=== PATIENT | male | born 1965 | race African-American/Black ===

== ENCOUNTER 2016-10-06 05:13 | Emergency (ER) | payer OTHER ==
[2016-10-06] MEDS ORDERED: Ketorolac Tromethamine 60 MG/2 ML VIAL ONE (05:39)
== END 2016-10-06 06:00 | disposition home or self-care (01) ==
LOC: NAV ERS 05:13
DX: M10.9 Gout, unspecified (principal); I10 Essential (primary) hypertension; E78.5 Hyperlipidemia, unspecified; Z79.899 Other long term (current) drug therapy; Z79.82 Long term (current) use of aspirin
CPT/HCPCS: 96372; J1885

== ENCOUNTER 2017-02-27 17:28 | Emergency (ER) | payer OTHER ==
[2017-02-27] MEDS ORDERED: Ketorolac Tromethamine 60 MG/2 ML VIAL ONE (17:57)
== END 2017-02-27 18:23 | disposition home or self-care (01) ==
LOC: NAV ERS 17:28
DX: M10.9 Gout, unspecified (principal); E78.5 Hyperlipidemia, unspecified; I10 Essential (primary) hypertension; F17.220 Nicotine dependence, chewing tobacco, uncomplicated; Z79.82 Long term (current) use of aspirin; Z79.899 Other long term (current) drug therapy
CPT/HCPCS: 96372; J1885

== ENCOUNTER 2017-03-02 08:41 | Outpatient (CLI) | payer OTHER ==
--- NOTE | 2017-03-02 10:29 | RAD ---
LEFT ELBOW FOUR VIEWS: History: 51-year-old male with history of gout. FINDINGS: There is evidence for elbow joint effusion with prominently visible posterior fat pad. Prominent enth esophytic changes are noted involving the triceps, olecranon insertion, as well as at the region of t he common flexion tendon insertion. Mild degenerative changes of the trochlear ulna joint. No acute f racture or dislocation. IMPRESSION: Evidence for an elbow joint effusion. Prominent enthesophytic changes. No acute fracture or dislocati on. POS: [facility]
--- NOTE | 2017-03-02 10:30 | RAD ---
LEFT KNEE FOUR VIEWS: History: 51-year-old male with history of pain. Left knee pain with history of diagnosis of gout. FINDINGS: Four views of the left knee demonstrate mild degenerative changes. No acute fracture or dislocation. No evidence for abnormal joint effusion. Quadriceps enthesophytic changes. IMPRESSION: Degenerative changes. No fracture or dislocation. POS: [facility]
== END 2017-03-02 08:42 | disposition home or self-care (01) ==
LOC: NAV RAD 08:41
DX: M10.9 Gout, unspecified (principal); M17.12 Unilateral primary osteoarthritis, left knee; M25.461 Effusion, right knee; M76.9 Unspecified enthesopathy, lower limb, excluding foot

== ENCOUNTER 2017-05-02 10:48 | Emergency (ER) | payer OTHER | END 2017-05-02 11:35 | disposition home or self-care (01) | LOC: NAV ERS 10:48 | DX: M10.9 Gout, unspecified (principal); E78.5 Hyperlipidemia, unspecified; I10 Essential (primary) hypertension; F17.220 Nicotine dependence, chewing tobacco, uncomplicated; F17.290 Nicotine dependence, other tobacco product, uncomplicated; Z79.82 Long term (current) use of aspirin; Z79.899 Other long term (current) drug therapy | CPT/HCPCS: 99283 ==

== ENCOUNTER 2017-11-21 06:32 | Emergency (ER) | payer OTHER ==
[2017-11-21] MEDS ORDERED: Ketorolac Tromethamine 60 MG/2 ML VIAL ONE (07:10)
== END 2017-11-21 07:36 | disposition home or self-care (01) ==
LOC: NAV ERS 06:32
DX: M10.9 Gout, unspecified (principal); E78.5 Hyperlipidemia, unspecified; F17.220 Nicotine dependence, chewing tobacco, uncomplicated; Z79.82 Long term (current) use of aspirin; Z79.899 Other long term (current) drug therapy
CPT/HCPCS: 96372; J1885

== ENCOUNTER 2018-01-26 05:09 | Emergency (ER) | payer OTHER ==
[2018-01-26] MEDS ORDERED: Indomethacin 25 mg Capsule ONE (05:31)
[2018-01-26] MEDS ORDERED: Colchicine 0.6 MG TAB ONE (05:32)
== END 2018-01-26 05:41 | disposition home or self-care (01) ==
LOC: NAV ERS 05:09
DX: M10.9 Gout, unspecified (principal); E78.5 Hyperlipidemia, unspecified; I10 Essential (primary) hypertension; F17.220 Nicotine dependence, chewing tobacco, uncomplicated; Z79.82 Long term (current) use of aspirin; Z79.899 Other long term (current) drug therapy
CPT/HCPCS: 99283

== ENCOUNTER 2018-09-18 08:17 | Emergency (ER) | payer OTHER | END 2018-09-18 08:48 | disposition home or self-care (01) | LOC: NAV ERS 08:17 | DX: H10.33 Unspecified acute conjunctivitis, bilateral (principal); I10 Essential (primary) hypertension; M10.9 Gout, unspecified; E78.5 Hyperlipidemia, unspecified; F17.220 Nicotine dependence, chewing tobacco, uncomplicated; Z79.82 Long term (current) use of aspirin; Z79.899 Other long term (current) drug therapy | CPT/HCPCS: 99282 ==

== ENCOUNTER 2019-01-19 07:29 | Emergency (ER) | payer OTHER ==
[2019-01-19] MEDS ORDERED: Sodium Chloride 0.9% 1,000 ML ONE (07:41)
[2019-01-19] MEDS ORDERED: Nitrazine Tape 1 ROLL ONE (07:46)
== END 2019-01-19 08:18 | disposition home or self-care (01) ==
LOC: NAV ERS 07:29
DX: Z77.098 Contact with and (suspected) exposure to other hazardous, chiefly nonmedicinal, chemicals (principal); I10 Essential (primary) hypertension; E78.5 Hyperlipidemia, unspecified; E78.00 Pure hypercholesterolemia, unspecified; M10.9 Gout, unspecified; F17.220 Nicotine dependence, chewing tobacco, uncomplicated; Z79.82 Long term (current) use of aspirin; Z79.899 Other long term (current) drug therapy
CPT/HCPCS: 99283; J7050

== ENCOUNTER 2019-06-23 17:38 | Emergency (ER) | payer OTHER ==
[2019-06-23 18:34] LABS: #Basophils 0.1 thou/uL (0.0-0.2); #Eosinphils 0.3 thou/uL (0.0-0.7); #Lymphocytes 2.1 thou/uL (1.20-3.40); #Monocytes 0.5 thou/uL (0.11-0.59); #Neutrophils 3.1 thou/uL (1.40-6.50); %Basophils 1.4 % (0.0-1.0); %Eosinophils 4.4 % (0.0-10.0); %Lymphocytes 34.7 % (21.0-51.0); %Monocytes 7.8 % (0.0-10.0); %Neutrophils 51.7 % (42.0-75.0); Hemoglobin 15.4 g/dL (14.0-18.0); Mean Corpuscular HGB CONC 30.8 g/dL (32.0-36.0); Mean Corpuscular Hemoglobin 26.3 pg (27.0-31.0); Mean Corpuscular Volume 85.4 fL (78.0-98.0); Mean Platelet Volume 7.5 fL (7.4-10.4); Platelet Count 230 thou/uL (130-400); RBC Distribution Width 13.9 % (11.5-14.5); Red Blood Cell (RBC) Count 5.87 mill/uL (4.70-6.10)
--- NOTE | 2019-06-23 18:48 | RAD ---
EXAM: Two views chest PROVIDED CLINICAL HISTORY: Pain COMPARISON: None FINDINGS: Cardiac and mediastinal silhouette appears within normal limits. Lungs appear free of significant opa city. No pleural fluid or pneumothorax apparent. Calcified hilar lymph node on the right. IMPRESSION: No evidence for an acute cardiopulmonary process.
[2019-06-23] MEDS ORDERED: Aspirin Chewable 81 MG TAB ONE (18:53)
[2019-06-23 18:57] LABS: ALT (SGPT) 28 U/L (8-55); AST (SGOT) 21 U/L (5-34); Alkaline Phosphatase 53 U/L (40-110); Anion Gap 18 mmol/L (10-20); BUN (Urea Nitrogen) 19 mg/dL (8.4-25.7); Bilirubin, Total 0.3 mg/dL (0.2-1.2); Calc. Creatinine Clearance 0 mL/min (70-130); Calcium 8.9 mg/dL (7.8-10.44); Carbon Dioxide 23 mmol/L (22-29); Chloride 99 mmol/L (98-107); Estimated GFR-MDRD 75; Globulin 3.4 g/dL (2.4-3.5); Glucose 110 mg/dL (70-105); Potassium 3.2 mmol/L (3.5-5.1); Protein, Total 7.4 g/dL (6.0-8.3); Sodium 137 mmol/L (136-145)
[2019-06-23] MEDS ORDERED: Potassium Chloride 20 MEQ TAB ONE (19:18)
== END 2019-06-23 19:25 | disposition home or self-care (01) ==
LOC: NAV ERS 17:38
DX: R07.9 Chest pain, unspecified (principal); E87.6 Hypokalemia; E78.5 Hyperlipidemia, unspecified; E78.00 Pure hypercholesterolemia, unspecified; I10 Essential (primary) hypertension; M10.9 Gout, unspecified; K21.9 Gastro-esophageal reflux disease without esophagitis; F17.220 Nicotine dependence, chewing tobacco, uncomplicated; Z79.899 Other long term (current) drug therapy
CPT/HCPCS: 71046; 80053; 84484; 85025; 93005; 94760

== ENCOUNTER 2019-09-19 09:41 | Emergency (ER) | payer OTHER | END 2019-09-19 10:23 | disposition home or self-care (01) | LOC: NAV ERS 09:41 | DX: M10.9 Gout, unspecified (principal); E78.5 Hyperlipidemia, unspecified; I10 Essential (primary) hypertension; F17.220 Nicotine dependence, chewing tobacco, uncomplicated; Z79.899 Other long term (current) drug therapy | CPT/HCPCS: 99283 ==

== ENCOUNTER 2019-09-23 07:07 | Emergency (ER) | payer OTHER | END 2019-09-23 07:51 | disposition home or self-care (01) | LOC: NAV ERS 07:07 | DX: M10.9 Gout, unspecified (principal); E78.5 Hyperlipidemia, unspecified; I10 Essential (primary) hypertension; F17.220 Nicotine dependence, chewing tobacco, uncomplicated; Z79.899 Other long term (current) drug therapy | CPT/HCPCS: 99283 ==

== ENCOUNTER 2020-08-12 00:08 | Emergency (ER) | payer OTHER ==
[2020-08-12] MEDS ORDERED: Ketorolac Tromethamine 30 MG/ML VIAL ONE (00:34)
[2020-08-12] MEDS ORDERED: Colchicine 0.6 MG TAB ONE ×2 (00:34→00:42)
[2020-08-12] MEDS ORDERED: Colchicine 0.6 MG TAB PO SCH ×2 (00:45→01:00)
== END 2020-08-12 01:11 | disposition home or self-care (01) ==
LOC: NAV ERS 00:08
DX: M10.9 Gout, unspecified (principal); E78.5 Hyperlipidemia, unspecified; I10 Essential (primary) hypertension; F17.220 Nicotine dependence, chewing tobacco, uncomplicated
CPT/HCPCS: 96372; 99283; J1885

== ENCOUNTER 2023-04-13 09:49 | Emergency (ER) | payer BC, OTHER | END 2023-04-13 11:15 | disposition home or self-care (01) | LOC: NAV ERS 09:49 | DX: S05.12XA Contusion of eyeball and orbital tissues, left eye, initial encounter (principal); S05.11XA Contusion of eyeball and orbital tissues, right eye, initial encounter; E78.5 Hyperlipidemia, unspecified; F17.220 Nicotine dependence, chewing tobacco, uncomplicated; Z79.899 Other long term (current) drug therapy; Y04.8XXA Assault by other bodily force, initial encounter | CPT/HCPCS: 99283 ==

== ENCOUNTER 2023-06-03 07:21 | Emergency (ER) | payer BC ==
[2023-06-03] MEDS ORDERED: Ketorolac Tromethamine 60 MG/2 ML VIAL ONE (08:00)
[2023-06-03] MEDS ORDERED: Colchicine 0.6 MG TAB PO SCH (08:30)
== END 2023-06-03 08:37 | disposition home or self-care (01) ==
LOC: NAV ERS 07:21
DX: M10.9 Gout, unspecified (principal); I10 Essential (primary) hypertension; E78.5 Hyperlipidemia, unspecified; F17.220 Nicotine dependence, chewing tobacco, uncomplicated; Z79.899 Other long term (current) drug therapy
CPT/HCPCS: 96372; 99283; J1885

== ENCOUNTER 2025-03-30 05:04 | Emergency (ER) | payer BC, SELFPAY ==
[2025-03-30] MEDS ORDERED: Colchicine 0.6 MG TAB ONE (05:21)
== END 2025-03-30 05:35 | disposition home or self-care (01) ==
LOC: NAV ERS 05:04
DX: M10.9 Gout, unspecified (principal); I10 Essential (primary) hypertension; F17.220 Nicotine dependence, chewing tobacco, uncomplicated
CPT/HCPCS: 96372; 99283; J1885